=== PATIENT | female | born 1975 | race Two or more races ===

== ENCOUNTER 2018-05-12 16:50 | Emergency (ER) | payer BC ==
--- NOTE | 2018-05-12 18:18 | EDM.PDOC ---
ED HPI GENERAL MEDICAL PROBLEM - General Chief Complaint: Lower Extremity Injury/Pain Stated Complaint: INJURED LEFT 4TH TOE Time Seen by Provider: 05/12/18 18:05 Source of Information: Reports: Patient, Family (hus) History Limitations: Reports: No Limitations - History of Present Illness INITIAL COMMENTS - FREE TEXT/NARRATIVE: 43 yo female presents to the ED after a ground level fall injuring her Left toes. She reports tripping over something on the ground causing her to fall and catch her toe on the ground. She said she noticed her toe was "facing the wrong way" so her pulled it and put it back in the correct direction. She had immediate swelling and bruising. She has tried tylenol with minimal pain relief and believes the ice has helped. No prior injuries or surgeries to this foot. She hit her L arm on a drawer as she fell as well. She has normal ROM of the L arm and a small bump over the bicep. She is from [place] and will be returning home in two days and is concerned about pain during travel. Onset: Sudden Duration: Hour(s): (3) Location: Reports: Lower Extremity, Left (L 3rd and 4th toe) Quality: Reports: Throbbing Severity: Moderate Improves with: Reports: Cold Therapy Worsens with: Reports: Movement Context: Reports: Trauma (fall from groung level, catching toe on the ground) Associated Symptoms: Reports: No Other Symptoms Treatments SLIDE MAKER: Reports: Acetaminophen Left Feet Pain Score (Numeric/FACES): 8 - Related Data Allergies Allergy/AdvReac Type Severity Reaction Status Date / Time No Known Allergies Allergy Verified 05/12/18 17:17 Home Meds: Home Meds . 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 Denies: Pallor Neurological: Reports: No Symptoms, Difficulty Walking. Denies: Numbness, Tingling, Weakness Psychiatric: Reports: No Symptoms ED EXAM, GENERAL - Physical Exam Exam: See Below Exam Limited By: No Limitations General Appearance: Alert, WD/WN, No Apparent Distress Ears: Hearing Grossly Normal Head: Atraumatic, Normocephalic Neck: Supple, Full Range of Motion Respiratory/Chest: No Respiratory Distress, Lungs Clear, Normal Breath Sounds, No Accessory Muscle Use, Chest Non-Tender Cardiovascular: Normal Peripheral Pulses, Regular Rate, Rhythm, No Edema, No Gallop, No Murmur, No Rub Extremities: Other (L toes tender to palpation and with PROM/AROM. Normal sensory/motor function of toes. Area of ecchymosis on the dorsal aspect base of 3rd and 4th toe.) Neurological: Alert, Oriented, Normal Cognition, No Motor/Sensory Deficits Psychiatric: Normal Affect, Normal Mood Skin Exam: Warm, Dry, Intact, Normal Color Course - Vital Signs Last Recorded V/S: Last Vital Signs Temp 98.2 F 05/12/18 17:14 Pulse 74 05/12/18 17:14 Resp 18 05/12/18 17:14 BP 111/65 05/12/18 17:14 Pulse Ox 95 05/12/18 17:14 - Orders/Labs/Meds Orders: Active Orders 24 hr Category Date Time Status Foot Comp Min 3V Lt [CR] Stat Exams 05/12/18 18:09 Taken Durable Medical Equipment for Discharge [DME for Oth 05/12/18 19:47 Ordered Discharge] [COMM] Stat Meds: Medications Discontinued Medications Generic Name Dose Route Start Last Admin Trade Name Gertrude PRN Reason Stop Dose Admin Ibuprofen 600 mg 05/12/18 18:33 05/12/18 18:42 Motrin PO 05/12/18 18:34 600 mg ONETIME ONE Administration Departure - Departure Time of Disposition: 19:15 Disposition: Home, Self-Care 01 Condition: Good Clinical Impression: Fracture of toe of left foot Qualifiers: Encounter type: initial encounter Toe: lesser toe Fracture type: closed Phalanx : proximal Fracture alignment: nondisplaced Qualified Code(s): S92.515A - Nondisplaced fracture of proximal phalanx of left lesser toe(s), initial encounter for closed fracture - Discharge Information Instructions: Toe Fracture With Rehab-SportsMed Referrals: PCP,Not In Area [Primary Care Provider] - Forms: ED Department Discharge Additional Instructions: You were seen in the ER for a fractured toe of the Left foot. Nikita tape the toes together for 4-6 weeks. Keep a dry gauze between the toes to prevent maceration of the skin when taped together. Continue to use ibuprofen for pain and swelling, 600mg every 6 hours. Use the Percocet as needed for pain not controlled by Motrin. Keep foot elevated as much as possible and continue to use ice for pain and swelling. Follow up with your primary care doctor in [place] as needed or if pain and swelling worsen. - My Orders Last 24 Hours: My Active Orders 05/12/18 18:09 Foot Comp Min 3V Lt [CR] Stat - Assessment/Plan Last 24 Hours: My Active Orders 05/12/18 18:09 Foot Comp Min 3V Lt [CR] Stat
[2018-05-12] MEDS ORDERED: Ibuprofen 600 MG Tab PO ONE (18:33)
--- NOTE | 2018-05-14 16:06 | CR ---
Left foot: Four views of the left foot were obtained. Comparison: No prior left foot exam. Joint spaces are preserved. Fracture is identified within the distal corner of the proximal phalanx of the fourth digit. Articular extension is seen. Slight displacement is noted. No additional fracture or other abnormality is appreciated. Impression: 1. Fourth toe fracture as described above. Left foot exam is otherwise unremarkable. Diagnostic code #3
== END 2018-05-12 20:01 | disposition home or self-care (01) ==
LOC: JD.ED 16:50
DX: S92.512A Displaced fracture of proximal phalanx of left lesser toe(s), initial encounter for closed fracture (principal); W18.30XA Fall on same level, unspecified, initial encounter
CPT/HCPCS: 73630; 99283; A9270